=== PATIENT | female | born 1965 | race Caucasian/White ===

== ENCOUNTER 2021-02-18 11:10 | Day surgery (SDC) | payer BC ==
[2021-02-18] MEDS ORDERED: Depo-Medrol 40 MG/ML IM ONE (11:11)
[2021-02-18] MEDS ORDERED: BUPIVACAINE 0.5% VIAL IJ ONE (11:11)
[2021-02-18] MEDS ORDERED: Ketamine HCl 50 MG/ML ONE (13:02)
[2021-02-18] MEDS ORDERED: DIPRIVAN 200 MG/20 ML IV ONE ×2 (13:02→13:14)
--- NOTE | 2021-02-18 14:16 | XRAY ---
Indication: Right hip and greater trochanter bursa injections. Intraoperative fluoroscopy provided for 49 seconds. 2 digital spot image submitted for interpretation demonstrates needle tip projecting lateral to right femur head. Second needle tip lateral to greater trochanter. Small amount of contrast injected for both needle tip placement. Correlate with intraoperative findings/report.
--- NOTE | 2021-02-18 14:17 | XRAY ---
Indication: Left hip and greater trochanter bursa injections. Intraoperative fluoroscopy provided for 38 seconds. 2 digital spot image submitted for interpretation demonstrates needle tip projecting lateral to left femur head. Second needle tip lateral to greater trochanter. Small amount of contrast injected for both needle tip placement. Correlate with intraoperative findings/report.
--- NOTE | 2021-02-18 14:23 | XRAY ---
43 seconds of fluoroscopy was used in surgery for a right intra-articular and greater trochanteric bursa hip injection.
--- NOTE | 2021-02-18 14:25 | XRAY ---
38 seconds of fluoroscopy was used in surgery for a left intra-articular and greater trochanteric bursa hip injection.
[2021-02-18] MEDS ORDERED: Lactated Ringers 1,000 ML IV ONE (15:14)
== END 2021-02-18 13:41 | disposition home or self-care (01) ==
LOC: SDC-PAIN 11:10
PROVIDERS: ATTEND Psychiatry & Neurology Pain Medicine
DX: M70.62 Trochanteric bursitis, left hip (principal); M70.61 Trochanteric bursitis, right hip; M16.0 Bilateral primary osteoarthritis of hip; I10 Essential (primary) hypertension; Z79.899 Other long term (current) drug therapy
CPT/HCPCS: 20610; 73502; 77002; J1030; J2704; Q9966